=== PATIENT | female | born 1980 | race Caucasian/White ===

== ENCOUNTER 2025-08-13 14:39 | Emergency (ER) | payer OTHER, SELFPAY ==
[2025-08-13 14:44] VITALS: BP 128/91
--- NOTE | 2025-08-13 16:25 | EDRN ---
Smith Tripathi VEST MAKER in room w/ pt. Pt is now attempting urine spec.
[2025-08-13 17:07] VITALS: BMI 26.4
[2025-08-13 17:09] VITALS: BP 130/86
[2025-08-13 17:11] LABS: Urine Character Clear (Clear)
[2025-08-13 17:19] LABS: Urine Squamous Cell 26-30 /LPF (Few)
[2025-08-13 17:21] LABS: Urine White Cell 30-40 /HPF (0-5)
--- NOTE | 2025-08-13 17:39 | EDRN ---
Smith Tripathi AUTO PORTER in to update pt.
--- NOTE | 2025-08-13 17:41 | ED.GENMED ---
History of Present Illness
General
Chief Complaint: Gynecological Problem
Source: patient
Exam Limitations: none
Time Seen by Provider: 08/13/25 16:21
Nursing documentation reviewed up to this point in time: agreed with
History of Present Illness
History of Present Illness:
Patient to the emergency department requesting STD testing. She states approximately 1 month ago she was notified by her boyfriend that he had tested positive for syphilis. She denies having any symptoms at that time. She was in [place] at that
time and reports going to an urgent care for testing. She denies any blood work during that visit. She did have testing for trichomonas gonorrhea and chlamydia. Trichomonas was positive. She states that she was placed on doxycycline twice a day
for 2 weeks. She comes to the emergency department today because she wanted to be retested to be sure that her infection has cleared. She continues to be symptom-free. She does not currently have a fluid pump operator to follow-up with.
Past History
Past History
ED Past Medical History: Other (migraines)
ED Past Surgical History: Gynecological
Patient has exhibited threatening behavior?: No
PSI?: No
Social History
Tobacco: Non-smoker
Alcohol: None
Drug: None
Personal: Partner
Living: with family
Employment: Other
Family History
Family History: Other
Review of Systems
Review of Systems
Allergies reviewed?: Yes
All Other Systems: ROS reviewed and negative except as documented in HPI and ROS
Constitutional: Reports no symptoms
EENT: Reports no symptoms
Respiratory: Reports no symptoms
Cardiac: Reports no symptoms
ABD/GI: Reports no symptoms
: Reports no symptoms
Musculoskeletal: Reports no symptoms
Skin: Reports no symptoms
Neurological: Reports no symptoms
Psychiatric: Reports no symptoms
Phy Exam
General Physical Exam
General Presentation: well appearing and no apparent distress
General age: appears stated age
General Skin: warm and dry
General Habitus: normal
General Mental: alert
Gastrointestinal Exam
Gastrointestinal Exam: non tender, soft, no organomegaly and non distended
Genitourinary Exam Female
Exam Female: no adnexal tenderness, no bleeding, no CMT, no lesions and no mass
Vaginal Exam: normal
Vaginal Bleeding: none
Vaginal Discharge: watery
Visual exam of cervix: os closed
Musculoskeletal Exam
Musculoskeletal Exam: full ROM and neuro vasc intact
Skin Exam
Skin Exam: normal color, warm/dry and no rash
Psychiatric Exam
Psychiatric Exam: normal mood/affect
Course
Orders/Labs/Results
Orders:
Orders
08/13/25 17:03
RPR [Syphilis/T. pallidum Ab Reflex] Urgent
Urinalysis Reflex To Culture Urgent
Date Specimen was Collected: 08/13/25
Time Specimen was Collected: 16:54
Urine Microscopic Reflex Cult Urgent
Chlamydia/GC by PCR Urgent
THALIA Source: Urine
Specimen Description:
Source:: URINE
Date Specimen was Collected: 08/13/25
Time Specimen was Collected: 16:54
Genital Culture Urgent
THALIA Source: Cervix
Specimen Description:
Date Specimen was Collected: 08/13/25
Time Specimen was Collected: 16:54
Trichomonas - Wet Prep Urgent
THALIA Source: Vagina
Specimen Description:
Date Specimen was Collected: 08/13/25
Time Specimen was Collected: 16:54
Urine Culture Urgent
THALIA Source: U
Specimen Description:
Date Specimen was Collected: 08/13/25
Time Specimen was Collected: 16:54
Abnormal Lab Results
08/13/25
17:03
Urine Ketones 2+ A
(Negative)
Ur Occult Blood Reflex 2+ A
(Negative)
Leukocyte Esterase Rfl 1+ A
(Negative)
Urine RBC 3-6 A /HPF
(0-2)
Urine WBC (Reflex) 30-40 A /HPF
(0-5)
Urine Bacteria (Reflex) Few A
(Negative)
Urine Albumin (Reflex) 1+ A
(Neg - Trace)
Vital Signs
Initial and Last Documented VS:
Initial Vital Signs
Temp Pulse Resp BP Pulse Ox
97.6 F 80 18 128/91 98
08/13/25 14:44 08/13/25 14:44 08/13/25 14:44 08/13/25 14:44 08/13/25 14:44
Last Documented Vital Signs
Temp Pulse Resp BP Pulse Ox
97.6 F 80 16 130/86 100
08/13/25 14:44 08/13/25 17:09 08/13/25 17:09 08/13/25 17:09 08/13/25 17:09
*Radiology
Radiology exam reviewed: radiology read reviewed
*Pulse Oximetry
SaO2: 100
Oxygen Mode of Delivery: Room air
Patient hypoxic: no
*Critical Care Note
Total Time (30-74mins, 75-104mins- exclusive of procedures): Not Applicable
Update Note
Update Note:
Patient to the emergency department requesting STD testing. She states she tested positive for trichomonas approximately 1 month ago. She had gone to an urgent care to be evaluated for syphilis with her boyfriend had notified her that he tested
positive. She denies having any blood work done at that time. She has had no symptoms prior to that evaluation. She was found to be positive for trichomonas on that examination and she reports being treated with doxycycline 100 mg twice daily for
2 weeks. She has remained asymptomatic and comes to the emergency department today without any complaints. Pelvic exam completed no concerning findings on exam. Genital culture and trichomonas culture were obtained. Trichomonas was negative
today. Urine sent for GC/chlamydia evaluation, results are pending. RPR testing was initiated in ED today, results are pending. Urinalysis reviewed, few bacteria noted. Will wait for urine culture results. Patient will be discharged home today
and she is aware that we will contact her for any positive culture results. She was given the number for gynecology follow-up and agrees to schedule an appointment. She was given instructions on signs and symptoms to return to the emergency
department and she is agreeable to this plan.
ED Attending Note
-
Portions of this chart may have been created with voice recognition software.� Occasional wrong word or��sound alike� substitutions may have occurred due to the inherent limitations of voice recognition software.
Discharge Plan
Departure
Patient Disposition: Home (Routine Discharge)
Date of Disposition: 08/13/25
Time of Disposition: 17:38
Patient with high blood pressure during this ER visit?: No
Condition: Good
Covid-19: Not Applicable
Discharge Problem:
Potential exposure to STD
Instructions: Sexually transmitted infections - ED (DC)
Prescriptions:
No Action
bupropion HCl [Wellbutrin XL] 300 mg Tablet Extended Release 24 Hr
300 mg PO DAILY
buprenorphine-naloxone [Suboxone] 8-2 mg Film
1 film BUCCAL Q24H
gabapentin 400 mg Capsule
400 mg PO BID
ondansetron 4 mg tablet,disintegrating
4 mg PO Q8H PRN (Reason: nausea and vomiting) Qty: 7 0RF
ondansetron 4 mg tablet,disintegrating
4 mg PO Q6H PRN (Reason: nausea and vomiting) Qty: 14 0RF
lansoprazole 30 mg capsule,delayed release(DR/EC)
30 mg PO DAILY 14 Days Qty: 14 0RF
Referrals:
[facility] [Outside]
Caridad Magallanes MD [Active, Gynecology] - Call in 1-3 days for appt
Anselmo Garcia DO [Family Provider, Family Practice]
Activity Restrictions/Additional Instructions:
As we discussed your culture results will take approximately 24 hours to result. We will contact you with any positive culture results. Please follow-up with gynecology. Return to the emergency department for any further concerns.
Interventions
Interventions:
*Risk Screen - Suicide Last Done: 08/13/25 17:09
*General Assessment Last Done: 08/13/25 17:08
*Neglect/Abuse Screening Last Done: 08/13/25 17:08
*ED- Fall Risk Assessment Last Done: 08/13/25 17:07
*ED COVID-19 Vaccine History Last Done: 08/13/25 17:07
*ED Influenza Vaccine History Last Done: 08/13/25 17:07
ED-Female Genitourinary Assessment Last Done: 08/13/25 17:09
Discharge Date and Time
Print Language: ITALIAN
== END 2025-08-13 17:50 | disposition home or self-care (01) ==
LOC: EMR 14:39
PROVIDERS: Nurse Practitioner; EMERGENCY PHYSICIAN Emergency Medicine; FAMILY PHYSICIAN Family Medicine
DX: Z20.2 Contact with and (suspected) exposure to infections with a predominantly sexual mode of transmission (principal)
CPT/HCPCS: 99283; 81003; 81015; 86780; 87070; 87086; 87210; 87491; 87591

== ENCOUNTER 2025-09-16 09:29 | Emergency (ER) | payer SELFPAY ==
[2025-09-16 09:35] VITALS: BP 134/92
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
[2025-09-16 10:25] VITALS: BMI 28.1
[2025-09-16 12:21] VITALS: BP 158/102
[2025-09-16] MEDS: TORADOL 15 MG IV (12:32)
[2025-09-16] MEDS: REGLAN 10 MG IV (12:32)
[2025-09-16 13:00] VITALS: BP 131/86
== END 2025-09-16 14:10 | disposition home or self-care (01) ==
LOC: EMR 09:29
PROVIDERS: EMERGENCY PHYSICIAN Emergency Medicine
DX: S09.90XA Unspecified injury of head, initial encounter (principal); V18.4XXA Pedal cycle driver injured in noncollision transport accident in traffic accident, initial encounter; Y93.55 Activity, bike riding
CPT/HCPCS: 99284; 96374; 96375; 70450; 72125